=== PATIENT | male | born 1995 | race Caucasian/White ===

== ENCOUNTER 2019-06-01 20:56 | Emergency (ER) | payer OTHER ==
[~2019-06-01] VITALS: Ht 188 cm; Wt 74.8 kg
--- OUTSIDE RECORDS SUMMARY | 2019-06-01 20:59 | XMS REPORT ---
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 Allergies, Adverse Reactions, Alerts This patient has no known allergies or adverse reactions. Medications This patient has no known medications. Encounters Start Date/Time End Date/Time Encounter Type Admission Type Attending [facility] Care Department Encounter ID 2018-05-12 00:00:00 2018-05-13 00:00:00 Outpatient [facility] [id number] 2018-05-05 00:00:00 2018-05-07 00:00:00 Outpatient [facility] [id number] 2018-04-28 00:00:00 2018-04-30 00:00:00 Outpatient [facility] [id number] 2018-04-21 00:00:00 2018-04-23 00:00:00 Outpatient [facility] [id number] 2018-04-07 00:00:00 2018-04-09 00:00:00 Outpatient [facility] [id number] 2018-03-31 00:00:00 2018-04-02 00:00:00 Outpatient [facility] [id number] 2018-03-24 00:00:00 2018-03-26 00:00:00 Outpatient [facility] [id number] 2018-02-24 00:00:00 2018-02-26 00:00:00 Outpatient [facility] [id number] 2018-02-17 00:00:00 2018-02-19 00:00:00 Outpatient [facility] [id number] 2018-02-10 00:00:00 2018-02-12 00:00:00 Outpatient [facility] [id number] 2017-08-14 00:00:00 2017-08-15 00:00:00 Outpatient [facility] [id number]
== END 2019-06-01 21:14 | disposition home or self-care (01) ==
LOC: ER 20:56
DX: M25.572 Pain in left ankle and joints of left foot (principal); L03.116 Cellulitis of left lower limb
CPT/HCPCS: 99282